=== PATIENT | male | born 1970 | race Caucasian/White ===

== ENCOUNTER 2020-07-11 13:09 | Inpatient (IN) | payer OTHER ==
[2020-07-11 13:59] VITALS: BMI 29.5
[2020-07-11] MEDS ORDERED: BISMUTH SUBSALICYLATE 524 MG/30 ML UD PO PRN (14:11)
[2020-07-11] MEDS ORDERED: MAGNESIUM HYDROX 2400MG/30ML ORAL SUSPENSION 30 ML CUP PO PRN (14:11)
[2020-07-11] MEDS ORDERED: MAG HYDROX/AL HYDROX/SIMETH 30 ML UNIT-DOSE CUP PO PRN (14:11)
[2020-07-11] MEDS ORDERED: ACETAMINOPHEN 325 MG TABLET (FP) PO PRN ×2 (14:11)
[2020-07-11] MEDS ORDERED: NICOTINE POLACRILEX 2 MG GUM BUC PRN (14:11)
[2020-07-11] MEDS ORDERED: IBUPROFEN 400 MG TABLET (FP) PO PRN (14:11)
[2020-07-11] MEDS ORDERED: ONDANSETRON *ODT* 4 MG TABLET SL PRN (14:11)
[2020-07-11] MEDS ORDERED: MENTHOL/PHENOL 1 EACH UD MM PRN (14:11)
[2020-07-11] MEDS ORDERED: MAGNESIUM CITRATE 300 ML BOTTLE PO PRN (14:11)
[2020-07-11] MEDS ORDERED: METHADONE HCL 10 MG TABLET (FOR DETOX USE ONLY) PO ONE (14:30)
[2020-07-11] MEDS ORDERED: APIXABAN 5 MG TABLET PO SCH ×2 (15:15→16:20)
[2020-07-11] MEDS: NICOTINE 21 MG/24 HOURS TOPICAL PATCH TD SCH (15:42)
[2020-07-11 16:24] LABS: HEMATOCRIT 26.1 % (35.4-49); HEMOGLOBIN 7.8 GM/dL (11.7-16.9); MEAN CELL VOLUME 66.1 fl (80-96); MEAN PLT VOLUME 9.6 fl (7.5-11.1); PLATELET COUNT 253 K/MM3 (134-434); RBC 3.95 M/mm3 (4.00-5.60); RDW 22.5 % (11.9-15.9); WHITE BLOOD COUNT 5.6 K/mm3 (4.0-10.0)
[2020-07-11 16:29] LABS: MCH 19.9 pg (25.7-33.7)
[2020-07-11 16:31] LABS: POTASSIUM 3.6 mmol/L (3.5-5.1)
[2020-07-11 16:33] LABS: CALCIUM 8.4 mg/dL (8.5-10.1)
[2020-07-11 16:34] LABS: BLOOD UREA NITROGEN 11.9 mg/dL (7-18)
[2020-07-11 16:37] LABS: CREATININE 0.8 mg/dL (0.55-1.3)
[2020-07-11 16:38] LABS: BILIRUBIN,TOTAL 0.2 mg/dL (0.2-1)
[2020-07-11 16:39] LABS: TOT PROT 6.2 g/dl (6.4-8.2)
[2020-07-11] MEDS: hydrOXYzine PAMOATE 25 MG CAPSULE (FP) PO SCH ×2 (19:12→22:25)
[2020-07-11] MEDS: APIXABAN 5 MG TABLET PO SCH (22:25)
[2020-07-11] MEDS: FERROUS SO4 325 MG TABLET (FP) PO SCH (22:25)
[2020-07-11] MEDS: THIAMINE HCL 100 MG TABLET (FP) PO SCH (22:25)
[2020-07-11] MEDS: MELATONIN 5 MG TABLETS PO SCH (22:26)
[2020-07-11] MEDS: cloNIDine HCL 0.1 MG TABLET PO PRN (23:36)
[2020-07-12] MEDS: hydrOXYzine PAMOATE 25 MG CAPSULE (FP) PO SCH ×6 (05:10→22:23)
[2020-07-12] MEDS: FERROUS SO4 325 MG TABLET (FP) PO SCH ×3 (05:10→22:23)
[2020-07-12] MEDS: cloNIDine HCL 0.1 MG TABLET PO PRN ×3 (05:11→23:13)
[2020-07-12] MEDS ORDERED: METHADONE HCL 5 MG TABLET (FOR DETOX USE ONLY) ONE (09:11)
[2020-07-12] MEDS ORDERED: METHADONE HCL 10 MG TABLET (FOR DETOX USE ONLY) ONE (09:11)
[2020-07-12] MEDS: FAMOTIDINE 20 MG TABLET PO SCH (09:28)
[2020-07-12] MEDS: NICOTINE 21 MG/24 HOURS TOPICAL PATCH TD SCH (09:28)
[2020-07-12] MEDS: APIXABAN 5 MG TABLET PO SCH ×2 (09:28→22:23)
[2020-07-12] MEDS: PRENATAL VITAMINS W/ FOLIC ACID TABLET (FP) PO SCH (09:28)
[2020-07-12] MEDS ORDERED: METHADONE (DETOX) 20 MG, METHADONE (DETOX) 5 MG PO ONE (10:00)
[2020-07-12] MEDS: diazePAM 5 MG TABLET PO PRN ×3 (10:52→20:40)
[2020-07-12] MEDS: THIAMINE HCL 100 MG TABLET (FP) PO SCH (22:23)
[2020-07-12] MEDS: MELATONIN 5 MG TABLETS PO SCH (22:23)
[2020-07-12] MEDS: METHOCARBAMOL 500 MG TABLET PO PRN (23:13)
[2020-07-13] MEDS: diazePAM 5 MG TABLET PO PRN ×5 (02:27→21:29)
[2020-07-13] MEDS: FERROUS SO4 325 MG TABLET (FP) PO SCH ×3 (05:50→21:32)
[2020-07-13] MEDS: hydrOXYzine PAMOATE 25 MG CAPSULE (FP) PO SCH ×5 (05:50→21:28)
[2020-07-13] MEDS: METHOCARBAMOL 500 MG TABLET PO PRN ×2 (06:19→21:34)
[2020-07-13] MEDS: cloNIDine HCL 0.1 MG TABLET PO PRN ×2 (08:54→23:49)
[2020-07-13] MEDS ORDERED: METHADONE HCL 10 MG TABLET (FOR DETOX USE ONLY) PO ONE (10:00)
[2020-07-13] MEDS: APIXABAN 5 MG TABLET PO SCH ×2 (10:30→21:32)
[2020-07-13] MEDS: PRENATAL VITAMINS W/ FOLIC ACID TABLET (FP) PO SCH (10:30)
[2020-07-13] MEDS: FAMOTIDINE 20 MG TABLET PO SCH (10:32)
[2020-07-13] MEDS: NICOTINE 21 MG/24 HOURS TOPICAL PATCH TD SCH (10:32)
[2020-07-13 10:41] LABS: HEMATOCRIT 35.5 % (35.4-49); HEMOGLOBIN 10.6 GM/dL (11.7-16.9); MCH 20.1 pg (25.7-33.7); MCHC 29.9 g/dl (32.0-35.9); MEAN CELL VOLUME 67.2 fl (80-96); MEAN PLT VOLUME 9.5 fl (7.5-11.1); PLATELET COUNT 271 K/MM3 (134-434); RBC 5.28 M/mm3 (4.00-5.60); RDW 23.3 % (11.9-15.9); WHITE BLOOD COUNT 6.4 K/mm3 (4.0-10.0)
[2020-07-13] MEDS: THIAMINE HCL 100 MG TABLET (FP) PO SCH (21:29)
[2020-07-13] MEDS: MELATONIN 5 MG TABLETS PO SCH (21:32)
[2020-07-14] MEDS: diazePAM 5 MG TABLET PO PRN ×4 (04:39→23:25)
[2020-07-14] MEDS: FERROUS SO4 325 MG TABLET (FP) PO SCH ×3 (06:34→23:12)
[2020-07-14] MEDS: hydrOXYzine PAMOATE 25 MG CAPSULE (FP) PO SCH ×5 (06:34→23:13)
[2020-07-14] MEDS ORDERED: METHADONE HCL 5 MG TABLET (FOR DETOX USE ONLY) ONE (09:01)
[2020-07-14] MEDS ORDERED: METHADONE HCL 10 MG TABLET (FOR DETOX USE ONLY) ONE (09:01)
[2020-07-14] MEDS ORDERED: METHADONE (DETOX) 10 MG, METHADONE (DETOX) 5 MG PO ONE (10:00)
[2020-07-14] MEDS: APIXABAN 5 MG TABLET PO SCH ×2 (10:11→23:11)
[2020-07-14] MEDS: PRENATAL VITAMINS W/ FOLIC ACID TABLET (FP) PO SCH (10:12)
[2020-07-14] MEDS: NICOTINE 21 MG/24 HOURS TOPICAL PATCH TD SCH (10:12)
[2020-07-14] MEDS: FAMOTIDINE 20 MG TABLET PO SCH (10:12)
[2020-07-14 16:32] VITALS: TEMP 97.8
[2020-07-14] MEDS ORDERED: SUVOREXANT 10 MG TABLET PO PRN (22:00)
[2020-07-14] MEDS: THIAMINE HCL 100 MG TABLET (FP) PO SCH (23:13)
[2020-07-15] MEDS: hydrOXYzine PAMOATE 25 MG CAPSULE (FP) PO SCH ×2 (05:05→10:35)
[2020-07-15] MEDS: diazePAM 5 MG TABLET PO PRN (05:05)
[2020-07-15] MEDS: FERROUS SO4 325 MG TABLET (FP) PO SCH (05:05)
[2020-07-15] MEDS: METHOCARBAMOL 500 MG TABLET PO PRN ×2 (05:07→10:39)
[2020-07-15 06:12] VITALS: BP 135/85; PULSE 78
[2020-07-15] MEDS ORDERED: METHADONE HCL 10 MG TABLET (FOR DETOX USE ONLY) PO ONE (10:00)
[2020-07-15] MEDS: PRENATAL VITAMINS W/ FOLIC ACID TABLET (FP) PO SCH (10:25)
[2020-07-15] MEDS: NICOTINE 21 MG/24 HOURS TOPICAL PATCH TD SCH (10:25)
[2020-07-15] MEDS: FAMOTIDINE 20 MG TABLET PO SCH (10:25)
[2020-07-15] MEDS: APIXABAN 5 MG TABLET PO SCH (11:57)
[2020-07-16] MEDS ORDERED: METHADONE HCL 5 MG TABLET (FOR DETOX USE ONLY) PO ONE (06:00)
== END 2020-07-15 12:37 | disposition home or self-care (01) | DRG 773 ==
LOC: YASAS 13:09 → Y6N 14:33
PROVIDERS: ADMIT Allergy & Immunology; ATTEND Allergy & Immunology
PROC: HZ2ZZZZ Detoxification Services for Substance Abuse Treatment (ICD-10-PCS; principal; 2020-07-11)
DX: F11.23 Opioid dependence with withdrawal (principal); F14.20 Cocaine dependence, uncomplicated; F13.20 Sedative, hypnotic or anxiolytic dependence, uncomplicated; F17.210 Nicotine dependence, cigarettes, uncomplicated; F19.282 Other psychoactive substance dependence with psychoactive substance-induced sleep disorder; F19.24 Other psychoactive substance dependence with psychoactive substance-induced mood disorder; F43.10 Post-traumatic stress disorder, unspecified; D64.9 Anemia, unspecified; Z86.69 Personal history of other diseases of the nervous system and sense organs; Z86.718 Personal history of other venous thrombosis and embolism; Z79.01 Long term (current) use of anticoagulants; Z99.89 Dependence on other enabling machines and devices; Z56.0 Unemployment, unspecified; Z59.0 Homelessness
CPT/HCPCS: 36415; 80053; 82962; 85027; 86780; 93005; 93010; C9803; J0735; U0003

== ENCOUNTER 2020-09-10 17:52 | Inpatient (IN) | payer OTHER ==
[2020-09-10] MEDS ORDERED: NICOTINE POLACRILEX 2 MG GUM BUC PRN (19:48)
[2020-09-10] MEDS ORDERED: MAGNESIUM CITRATE 300 ML BOTTLE PO PRN (19:48)
[2020-09-10] MEDS ORDERED: ACETAMINOPHEN 325 MG TABLET (FP) PO PRN ×2 (19:48)
[2020-09-10] MEDS ORDERED: MAGNESIUM HYDROX 2400MG/30ML ORAL SUSPENSION 30 ML CUP PO PRN (19:48)
[2020-09-10] MEDS ORDERED: MAG HYDROX/AL HYDROX/SIMETH 30 ML UNIT-DOSE CUP PO PRN (19:48)
[2020-09-10] MEDS ORDERED: MENTHOL/PHENOL 1 EACH UD MM PRN (19:48)
[2020-09-10] MEDS ORDERED: ONDANSETRON *ODT* 4 MG TABLET SL PRN (19:48)
[2020-09-10 19:55] VITALS: BMI 27.6
[2020-09-10] MEDS: FAMOTIDINE 20 MG TABLET PO SCH (21:13)
[2020-09-10] MEDS: THIAMINE HCL 100 MG TABLET (FP) PO SCH (21:16)
[2020-09-10] MEDS ORDERED: METHADONE HCL 10 MG TABLET (FOR DETOX USE ONLY) PO ONE (22:00)
[2020-09-10] MEDS: MELATONIN 5 MG TABLETS PO SCH (22:34)
[2020-09-10] MEDS: diazePAM 5 MG TABLET PO SCH (22:35)
[2020-09-10] MEDS: APIXABAN 5 MG TABLET PO SCH (22:35)
[2020-09-11] MEDS: diazePAM 5 MG TABLET PO SCH ×4 (06:36→22:02)
[2020-09-11] MEDS ORDERED: METHADONE HCL 10 MG TABLET (FOR DETOX USE ONLY) ONE (10:00)
[2020-09-11] MEDS ORDERED: METHADONE (DETOX) 20 MG, METHADONE (DETOX) 5 MG PO ONE (10:00)
[2020-09-11] MEDS ORDERED: METHADONE HCL 5 MG TABLET (FOR DETOX USE ONLY) ONE (10:00)
[2020-09-11 10:02] LABS: HEMATOCRIT 26.4 % (35.4-49); HEMOGLOBIN 8.3 GM/dL (11.7-16.9); MCH 22.1 pg (25.7-33.7); MCHC 31.3 g/dl (32.0-35.9); MEAN CELL VOLUME 70.6 fl (80-96); MEAN PLT VOLUME 10.2 fl (7.5-11.1); PLATELET COUNT 231 K/MM3 (134-434); RBC 3.74 M/mm3 (4.00-5.60); RDW 22.6 % (11.9-15.9); WHITE BLOOD COUNT 4.8 K/mm3 (4.0-10.0)
[2020-09-11 10:07] LABS: ALBUMIN 2.8 g/dl (3.4-5.0); BLOOD UREA NITROGEN 15.2 mg/dL (7-18); CALCIUM 8.2 mg/dL (8.5-10.1)
[2020-09-11 10:11] LABS: CREATININE 0.7 mg/dL (0.55-1.3)
[2020-09-11 10:12] LABS: BILIRUBIN,TOTAL 0.7 mg/dL (0.2-1); TOT PROT 5.4 g/dl (6.4-8.2)
[2020-09-11] MEDS: APIXABAN 5 MG TABLET PO SCH ×2 (10:25→22:02)
[2020-09-11] MEDS: FAMOTIDINE 20 MG TABLET PO SCH (10:26)
[2020-09-11] MEDS: PRENATAL VITAMINS W/ FOLIC ACID TABLET (FP) PO SCH (10:27)
[2020-09-11] MEDS: FERROUS SO4 325 MG TABLET (FP) PO SCH ×3 (10:27→18:03)
[2020-09-11] MEDS: METHOCARBAMOL 500 MG TABLET PO PRN ×2 (10:28→22:04)
[2020-09-11] MEDS: diazePAM 5 MG TABLET PO PRN (13:59)
[2020-09-11] MEDS: MELATONIN 5 MG TABLETS PO SCH (22:02)
[2020-09-11] MEDS: THIAMINE HCL 100 MG TABLET (FP) PO SCH (22:02)
[2020-09-12] MEDS: diazePAM 5 MG TABLET PO SCH ×3 (06:03→22:11)
[2020-09-12] MEDS ORDERED: METHADONE HCL 10 MG TABLET (FOR DETOX USE ONLY) PO ONE (10:00)
[2020-09-12] MEDS: diazePAM 5 MG TABLET PO PRN (10:22)
[2020-09-12] MEDS: METHOCARBAMOL 500 MG TABLET PO PRN (10:23)
[2020-09-12] MEDS: cloNIDine HCL 0.1 MG TABLET PO PRN ×3 (10:23→22:11)
[2020-09-12] MEDS: FAMOTIDINE 20 MG TABLET PO SCH (10:23)
[2020-09-12] MEDS: FERROUS SO4 325 MG TABLET (FP) PO SCH ×3 (10:23→18:41)
[2020-09-12] MEDS: APIXABAN 5 MG TABLET PO SCH ×2 (10:24→22:11)
[2020-09-12] MEDS: PRENATAL VITAMINS W/ FOLIC ACID TABLET (FP) PO SCH (10:24)
[2020-09-12] MEDS: THIAMINE HCL 100 MG TABLET (FP) PO SCH (22:11)
[2020-09-12] MEDS: MELATONIN 5 MG TABLETS PO SCH (22:11)
[2020-09-13] MEDS: diazePAM 5 MG TABLET PO PRN ×2 (03:59→10:53)
[2020-09-13 06:07] LABS: SARS-CoV-2 NAA Not Detected (Not Detected)
[2020-09-13] MEDS: diazePAM 5 MG TABLET PO SCH ×2 (06:26→18:17)
[2020-09-13] MEDS: FERROUS SO4 325 MG TABLET (FP) PO SCH ×3 (08:14→18:17)
[2020-09-13] MEDS ORDERED: METHADONE (DETOX) 10 MG, METHADONE (DETOX) 5 MG PO ONE (10:00)
[2020-09-13] MEDS ORDERED: METHADONE HCL 10 MG TABLET (FOR DETOX USE ONLY) ONE (10:09)
[2020-09-13] MEDS ORDERED: METHADONE HCL 5 MG TABLET (FOR DETOX USE ONLY) ONE (10:09)
[2020-09-13] MEDS: FAMOTIDINE 20 MG TABLET PO SCH (10:53)
[2020-09-13] MEDS: METHOCARBAMOL 500 MG TABLET PO PRN (10:53)
[2020-09-13] MEDS: APIXABAN 5 MG TABLET PO SCH ×2 (10:54→22:38)
[2020-09-13] MEDS: PRENATAL VITAMINS W/ FOLIC ACID TABLET (FP) PO SCH (10:54)
[2020-09-13 11:28] LABS: HEMOGLOBIN 10.9 GM/dL (11.7-16.9); MCH 21.8 pg (25.7-33.7); MCHC 31.3 g/dl (32.0-35.9); MEAN CELL VOLUME 69.8 fl (80-96); MEAN PLT VOLUME 10.8 fl (7.5-11.1); PLATELET COUNT 356 K/MM3 (134-434); RBC 5.02 M/mm3 (4.00-5.60); RDW 22.6 % (11.9-15.9); WHITE BLOOD COUNT 6.9 K/mm3 (4.0-10.0)
[2020-09-13] MEDS: cloNIDine HCL 0.1 MG TABLET PO PRN ×2 (18:17→22:38)
[2020-09-13] MEDS: traZODone HCL 50 MG TABLET (FP) PO SCH (22:38)
[2020-09-13] MEDS: MELATONIN 5 MG TABLETS PO SCH (22:38)
[2020-09-13] MEDS: THIAMINE HCL 100 MG TABLET (FP) PO SCH (22:38)
[2020-09-14] MEDS ORDERED: diazePAM 5 MG TABLET PO ONE (06:00)
[2020-09-14] MEDS: cloNIDine HCL 0.1 MG TABLET PO PRN ×3 (06:07→20:56)
[2020-09-14] MEDS: FERROUS SO4 325 MG TABLET (FP) PO SCH ×3 (07:40→17:55)
[2020-09-14] MEDS ORDERED: METHADONE HCL 10 MG TABLET (FOR DETOX USE ONLY) PO ONE (10:00)
[2020-09-14] MEDS: FAMOTIDINE 20 MG TABLET PO SCH (10:53)
[2020-09-14] MEDS: APIXABAN 5 MG TABLET PO SCH ×2 (10:54→23:04)
[2020-09-14] MEDS: PRENATAL VITAMINS W/ FOLIC ACID TABLET (FP) PO SCH (10:54)
[2020-09-14] MEDS: METHOCARBAMOL 500 MG TABLET PO PRN (20:57)
[2020-09-14] MEDS: MELATONIN 5 MG TABLETS PO SCH (23:04)
[2020-09-14] MEDS: THIAMINE HCL 100 MG TABLET (FP) PO SCH (23:04)
[2020-09-14] MEDS: traZODone HCL 50 MG TABLET (FP) PO SCH (23:04)
[2020-09-15] MEDS: METHOCARBAMOL 500 MG TABLET PO PRN (02:05)
[2020-09-15] MEDS: cloNIDine HCL 0.1 MG TABLET PO PRN (05:06)
[2020-09-15] MEDS ORDERED: METHADONE HCL 5 MG TABLET (FOR DETOX USE ONLY) PO ONE (06:00)
[2020-09-15 06:53] VITALS: TEMP 97.2
[2020-09-15] MEDS: FERROUS SO4 325 MG TABLET (FP) PO SCH (06:59)
[2020-09-15 10:47] VITALS: BP 124/68; PULSE 73
== END 2020-09-15 09:50 | disposition home or self-care (01) | DRG 773 ==
LOC: YASAS 17:52 → Y3N 20:24
PROVIDERS: ADMIT Allergy & Immunology; ATTEND Allergy & Immunology
PROC: HZ2ZZZZ Detoxification Services for Substance Abuse Treatment (ICD-10-PCS; principal; 2020-09-10)
DX: F11.23 Opioid dependence with withdrawal (principal); F13.20 Sedative, hypnotic or anxiolytic dependence, uncomplicated; F14.20 Cocaine dependence, uncomplicated; F17.210 Nicotine dependence, cigarettes, uncomplicated; F19.282 Other psychoactive substance dependence with psychoactive substance-induced sleep disorder; F19.24 Other psychoactive substance dependence with psychoactive substance-induced mood disorder; F43.10 Post-traumatic stress disorder, unspecified; D64.9 Anemia, unspecified; Z62.810 Personal history of physical and sexual abuse in childhood; Z91.410 Personal history of adult physical and sexual abuse; Z86.718 Personal history of other venous thrombosis and embolism; Z79.01 Long term (current) use of anticoagulants; Z87.828 Personal history of other (healed) physical injury and trauma; Z59.0 Homelessness
CPT/HCPCS: 36415; 80053; 85027; 86780; C9803; J0735; U0003; U0005

== ENCOUNTER 2020-11-02 13:30 | Inpatient (IN) | payer OTHER ==
[2020-11-02 15:02] VITALS: BMI 26.2
[2020-11-02] MEDS ORDERED: METHADONE HCL 10 MG TABLET (FOR DETOX USE ONLY) PO ONE (22:47)
[2020-11-02] MEDS ORDERED: MAGNESIUM HYDROX 2400MG/30ML ORAL SUSPENSION 30 ML CUP PO PRN (22:47)
[2020-11-02] MEDS ORDERED: NICOTINE POLACRILEX 2 MG GUM BUC PRN (22:47)
[2020-11-02] MEDS ORDERED: ACETAMINOPHEN 325 MG TABLET (FP) PO PRN ×2 (22:47)
[2020-11-02] MEDS ORDERED: MENTHOL/PHENOL 1 EACH UD MM PRN (22:47)
[2020-11-02] MEDS ORDERED: BISMUTH SUBSALICYLATE 524 MG/30 ML PO PRN (22:47)
[2020-11-02] MEDS ORDERED: MAGNESIUM CITRATE 300 ML BOTTLE PO PRN (22:47)
[2020-11-02] MEDS ORDERED: ONDANSETRON *ODT* 4 MG TABLET SL PRN (22:47)
[2020-11-02] MEDS ORDERED: MAG HYDROX/AL HYDROX/SIMETH 30 ML UNIT-DOSE CUP PO PRN (22:47)
[2020-11-02] MEDS ORDERED: IBUPROFEN 400 MG TABLET (FP) PO PRN (22:47)
[2020-11-02] MEDS ORDERED: METHADONE HCL 10 MG TABLET (FOR DETOX USE ONLY) ONE (23:59)
[2020-11-03] MEDS: cloNIDine HCL 0.1 MG TABLET PO PRN ×3 (03:27→17:37)
[2020-11-03] MEDS ORDERED: cloNIDine HCL 0.1 MG TABLET ONE (03:29)
[2020-11-03] MEDS ORDERED: hydrOXYzine PAMOATE 25 MG CAPSULE (FP) PO SCH (06:00)
[2020-11-03] MEDS ORDERED: METHADONE HCL 5 MG TABLET (FOR DETOX USE ONLY) ONE (09:32)
[2020-11-03] MEDS ORDERED: METHADONE HCL 10 MG TABLET (FOR DETOX USE ONLY) ONE (09:32)
[2020-11-03] MEDS ORDERED: METHADONE (DETOX) 20 MG, METHADONE (DETOX) 5 MG PO ONE (10:00)
[2020-11-03] MEDS: PRENATAL VITAMINS W/ FOLIC ACID TABLET (FP) PO SCH (10:27)
[2020-11-03] MEDS: NICOTINE 14 MG/24 HOURS TOPICAL PATCH TD SCH (10:27)
[2020-11-03] MEDS: METHOCARBAMOL 500 MG TABLET PO PRN (10:28)
[2020-11-03] MEDS: MELATONIN 5 MG TABLETS PO SCH (22:58)
[2020-11-03] MEDS: THIAMINE HCL 100 MG TABLET (FP) PO SCH (22:58)
[2020-11-03] MEDS: traZODone HCL 50 MG TABLET (FP) PO SCH (22:58)
[2020-11-04] MEDS ORDERED: METHADONE HCL 10 MG TABLET (FOR DETOX USE ONLY) PO ONE (10:00)
[2020-11-04] MEDS: PRENATAL VITAMINS W/ FOLIC ACID TABLET (FP) PO SCH (10:33)
[2020-11-04] MEDS: NICOTINE 14 MG/24 HOURS TOPICAL PATCH TD SCH (10:34)
[2020-11-04] MEDS: cloNIDine HCL 0.1 MG TABLET PO PRN ×2 (10:35→21:51)
[2020-11-04] MEDS: METHOCARBAMOL 500 MG TABLET PO PRN (18:54)
[2020-11-04] MEDS: traZODone HCL 50 MG TABLET (FP) PO SCH (21:51)
[2020-11-04] MEDS: MELATONIN 5 MG TABLETS PO SCH (21:51)
[2020-11-04] MEDS: THIAMINE HCL 100 MG TABLET (FP) PO SCH (21:51)
[2020-11-05] MEDS ORDERED: METHADONE HCL 10 MG TABLET (FOR DETOX USE ONLY) ONE (09:16)
[2020-11-05] MEDS ORDERED: METHADONE HCL 5 MG TABLET (FOR DETOX USE ONLY) ONE (09:16)
[2020-11-05] MEDS ORDERED: METHADONE (DETOX) 10 MG, METHADONE (DETOX) 5 MG PO ONE (10:00)
[2020-11-05] MEDS: PRENATAL VITAMINS W/ FOLIC ACID TABLET (FP) PO SCH (10:20)
[2020-11-05] MEDS: METHOCARBAMOL 500 MG TABLET PO PRN ×2 (10:21→16:48)
[2020-11-05] MEDS: NICOTINE 14 MG/24 HOURS TOPICAL PATCH TD SCH (10:22)
[2020-11-05 14:21] LABS: ALBUMIN 3.5 g/dl (3.4-5.0); BLOOD UREA NITROGEN 12.1 mg/dL (7-18)
[2020-11-05 14:25] LABS: BILIRUBIN,TOTAL 0.5 mg/dL (0.2-1); TOT PROT 6.8 g/dl (6.4-8.2)
[2020-11-05 14:38] LABS: CREATININE 0.6 mg/dL (0.55-1.3)
[2020-11-05 14:50] LABS: HEMATOCRIT 34.7 % (35.4-49); HEMOGLOBIN 11.1 GM/dL (11.7-16.9); MCH 21.7 pg (25.7-33.7); MCHC 31.8 g/dl (32.0-35.9); MEAN CELL VOLUME 68.1 fl (80-96); MEAN PLT VOLUME 9.1 fl (7.5-11.1); PLATELET COUNT 277 10^3/uL (134-434); RDW 23.8 % (11.9-15.9); WHITE BLOOD COUNT 7.2 K/mm3 (4.0-10.0)
[2020-11-05] MEDS: hydrOXYzine PAMOATE 25 MG CAPSULE (FP) PO PRN ×2 (16:48→22:21)
[2020-11-05] MEDS: QUEtiapine FUMARATE 50 MG TABLET PO PRN (22:21)
[2020-11-05] MEDS: THIAMINE HCL 100 MG TABLET (FP) PO SCH (22:21)
[2020-11-05] MEDS: MELATONIN 5 MG TABLETS PO SCH (22:21)
[2020-11-06] MEDS ORDERED: METHADONE HCL 10 MG TABLET (FOR DETOX USE ONLY) PO ONE (10:00)
[2020-11-06] MEDS: PRENATAL VITAMINS W/ FOLIC ACID TABLET (FP) PO SCH (10:36)
[2020-11-06] MEDS: METHOCARBAMOL 500 MG TABLET PO PRN ×2 (10:38→22:36)
[2020-11-06] MEDS: hydrOXYzine PAMOATE 25 MG CAPSULE (FP) PO PRN ×2 (10:38→22:36)
[2020-11-06] MEDS: NICOTINE 14 MG/24 HOURS TOPICAL PATCH TD SCH (10:38)
[2020-11-06] MEDS: MELATONIN 5 MG TABLETS PO SCH (22:34)
[2020-11-06] MEDS: THIAMINE HCL 100 MG TABLET (FP) PO SCH (22:34)
[2020-11-06] MEDS: QUEtiapine FUMARATE 50 MG TABLET PO PRN (22:36)
[2020-11-07] MEDS ORDERED: METHADONE HCL 5 MG TABLET (FOR DETOX USE ONLY) PO ONE (06:00)
[2020-11-07 09:47] VITALS: BP 127/67; PULSE 54; TEMP 96.9
== END 2020-11-07 09:17 | disposition home or self-care (01) | DRG 773 ==
LOC: YASAS 13:30 → Y3N 23:42
PROVIDERS: ADMIT Allergy & Immunology; ATTEND Allergy & Immunology
PROC: HZ2ZZZZ Detoxification Services for Substance Abuse Treatment (ICD-10-PCS; principal; 2020-11-02)
DX: F11.23 Opioid dependence with withdrawal (principal); F14.20 Cocaine dependence, uncomplicated; F17.210 Nicotine dependence, cigarettes, uncomplicated; F19.24 Other psychoactive substance dependence with psychoactive substance-induced mood disorder; F19.282 Other psychoactive substance dependence with psychoactive substance-induced sleep disorder; F43.10 Post-traumatic stress disorder, unspecified; D50.9 Iron deficiency anemia, unspecified; K21.9 Gastro-esophageal reflux disease without esophagitis; Z62.810 Personal history of physical and sexual abuse in childhood; Z56.0 Unemployment, unspecified; Z59.0 Homelessness
CPT/HCPCS: 36415; 80053; 85027; 86780; C9803; J0735; U0003; U0005